=== PATIENT | female | born 1990 | race African-American/Black ===

== ENCOUNTER 2017-09-02 08:56 | Emergency (ER) | payer MEDICAID, OTHER ==
[~2017-09-02] VITALS: Ht 167.6 cm; Wt 85.0 kg
[2017-09-02] MEDS ORDERED: KETOROLAC 60MG/2ML VIAL IM STA (11:30)
[2017-09-02 11:55] LABS: BASOPHILS % 0.4 % (0.0-2.0); EOSINOPHILS % 1.6 % (0.0-5.0); HEMATOCRIT. 38.4 % (36.0-48.0); HEMOGLOBIN. 12.8 g/dL (12.0-16.0); LYMPHOCYTES % 29.7 % (20.0-50.0); MEAN CORPUSCULAR HEMOGLOBIN 30.1 pg (28.0-32.0); MEAN CORPUSCULAR VOLUME 90.5 fL (81.0-99.0); MEAN PLATELET VOLUME 8.2 fl (7.4-10.4); NEUTROPHILS % 57.3 % (40.0-76.0); PLATELET 239 x1000/uL (130-400); RED BLOOD CELL COUNT 4.25 mill/uL (4.2-5.4); RED CELL DISTRIBUTION WIDTH 14.1 % (11.6-14.6)
[2017-09-02 12:01] LABS: CHLORIDE 108 mEq/L (98-107)
[2017-09-02 12:12] LABS: CARBON DIOXIDE 25 mEq/L (21-32)
[2017-09-02 13:20] VITALS: BP 120/77
[2017-09-02 13:25] LABS: CLARITY URINE CLEAR (CLEAR); COLOR URINE YELLOW (YELLOW); KETONES URINE NEGATIVE (NEGATIVE); LEUKOCYTE ESTERASE URINE TRACE (NEGATIVE); NITRITE URINE NEGATIVE (NEGATIVE); OCCULT BLOOD URINE TRACE (NEGATIVE); PROTEIN URINE NEGATIVE (NEGATIVE); SPECIFIC GRAVITY URINE 1.022 (1.005-1.030); UROBILINOGEN URINE 0.2 E.U./dL (0.2-1.0)
== END 2017-09-02 15:00 | disposition home or self-care (01) ==
LOC: ER 09:04
DX: R10.2 Pelvic and perineal pain (principal); M54.89 Other dorsalgia
CPT/HCPCS: 36415; 80053; 81001; 81025; 85025; 96372; 99284; J1885